=== PATIENT | male | born 1945 | race Caucasian/White ===

== ENCOUNTER 2016-06-25 08:43 | Day surgery (SDC) | payer MEDICARE ==
[~2016-06-25] VITALS: Ht 175.3 cm; Wt 83.6 kg
[2016-06-25] VITALS (7 sets, daily range): BP systolic 115–137; BP diastolic 73–85; PULSE 50–56; RESP 13–19; O2SAT 93–99
[~2016-06-25 08:43] MED LIST: Acetaminophen IV 1,000 MG in IV Premix 1 EACH IV ONE; Bupivacaine Liposome 1.3% 20 mL Inj INFILTRATE ONE; CeFAZolin 2 Gm/50 mL D5W IV Premix IV ONE; FLUO20CA25 PO; LIP40 PO; Lactated Ringer's 1,000 ML IV ONE; UBID1CAP52 PO
[2016-06-25] MEDS ORDERED: MetoCLOpramide 5 mg/mL 2 mL Inj ONE (08:44)
[2016-06-25] MEDS ORDERED: Propofol 10,000 mCg/mL 20 mL Inj ONE (08:44)
[2016-06-25] MEDS ORDERED: Ondansetron 2 mg/mL 2 mL Inj ONE (08:44)
[2016-06-25] MEDS ORDERED: CeFAZolin Inj 2 gm / 50mL D5W IV ONE (08:55)
--- NOTE | 2016-06-25 10:50 | PCM.HPANE ---
Patient Data Surgeon Admitting Provider: Attending Provider:Sanchez Gamble MD Primary Care Physician:Jaydon Cervantes MD Other Provider:[facility] [facility] Reason for Visit Bulbus Urethral Stricture Ht/WT & BMI Height (Feet): 5 Height (Inches): 9 Weight (Kilograms): 83.6 Body Mass Index 27.00 Allergies Coded Allergies: No Known Allergies (Verified Allergy, Unknown, 08/31/14) Past Anesthesia History Anesthesia History: Denies:: Abnormal Airway, Anesthesia Reactions, Difficult Intubation, Fam Anesthesia Reaction, Fam Malignant Hypertherm, Malignant Hyperthermia Diabetes History Hx Diabetes?: No MRSA MRSA: No Medications Blood Thinner: Aspirin Hypertension Medication: No Home Meds Incl Beta Karina: No Reported Medications Atorvastatin (Lipitor)40 Mg [id number] Mg PO DAILY Ref 0 06/20/16 Fluoxetine 20 Mg [id number] Mg PO DAILY Ref 0 06/20/16 Ubidecarenone/Vit E Acetate (Co Q-10 100 mg Softgel)1 Each Capsule1 Each PO DAILY 06/20/16 Discontinued Reported Medications Aspirin-Expunged Drug, Do Not Renew! (Lo-Dose Aspirin-Expunged Drug, Do Not Renew!)81 Mg Tablet.dr81 Mg PO 06/20/12 Ubidecarenone (Coq10)50 Mg Tab.acqj091 Mg PO 06/20/12 Lovastatin-Expunged Drug, Do Not Renew! 40 Mg Dhqzfm06 Mg PO 06/20/12 FLUoxetine-Expunged Drug, Do Not Renew! 20 Mg Jdrvaou19 Mg PO DAILY #30 CAP 06/20/12 History History of ENT Problems?: No HEENT History: Positive for:: Hearing Problem Denies:: Abnormal Airway Cataracts Difficult Intubation Glaucoma Denture Type: None Teeth Condition: Within Normal Limits Hx of Heart Problems?: No Cardiovascular History: Denies:: AICD Abdominal Aortic Aneurism Cardiac Surgery Chest Pain Edema Heart Murmur Hypertension Irregular Heartbeat Pacemaker Hx of Respiratory Problem?: No Respiratory History: Denies:: Asthma COPD Emphysema Oxygen Administration Use of C-PAP Machine Hx Neurologic Problems?: No Neurological History: Denies:: CVA Headaches Multiple Sclerosis Parkinson's Disease Seizures Hx of GI Problems?: No Hx of Problems?: Yes Genitourinary History: Denies:: Kidney Stones Urinary Tract Infection Other Pertinent History: urethral stricure - current admission problem Male Hx: Denies:: Prostate Problems Scrotal Mass Testicular Surgery Skin History: Denies:: History Skin Disorders? Pressure Ulcers Hx Musculoskeletal Problems?: Yes Musculoskeletal History: Positive for:: Musculoskeletal Trauma (prior hx ankle fx with fixation) Denies:: Back Injury Fibromyalgia Joint Replacement Myasthenia Gravis Osteoarthritis Rheumatoid Arthritis Hx of Psycho/Social Problems?: No Psycho Social History: Denies:: Anxiety Hx Depression Hx Surgeries?: Yes (rt ankle,appendectomy) Hx Any Other Health Problems?: Yes Other History: Denies:: Cancer Thyroid Disease History Blood Transfusions: Positive for:: Accept Blood Products? Denies:: Blood Transfusions Hx Diabetes: No Hx Alcohol Use: YesAlcoholic Drinks Per Day: one drink monthlyHx Substance Use : NoHave You Smoked inLast 12 mo: No Stop/Bang Treated for Sleep Apnea?: No Do You Have a CPAP Machine?: No S-Snoring: Do You Snore Loudly: Yes T-Tired: feel tired, fatigued: No O-Obsered: Observed not breath: No P-Blood Pressure: treated: No B- Body Mass Index > 35 kg/m2: No A- Age over 50: Yes N- Neck Large Circumference: No G- Gender Male: Yes GENE Total Score: 3 GENE Risk Assessment: Low Risk, <3 Yes Risk Assessment Category Category 1A: Patient has history of documented sleep apnea, and HAS NOT received any narcotic, sedative or anesthesia administration during this stay. Category 1B: Patient has history of documented sleep apnea, and HAS received any narcotic , sedative or anesthesia administration during this stay Category 2: Patient has SUSPECTED Obstructive Sleep Apnea, and HAS received any narcotic , sedative or anesthesia administration during this stay. Category 3: Patient has SUSPECTED Obstructive Sleep Apnea and HAS NOT received narcotic, sedative or anesthesia administration during this stay. Category 4: Outpatient in Procedural Areas with known sleep apnea or who screen positive for High Risk via the STOP/BANG questionnaire. Exam Exam Vital Signs Vital Signs Date Time Temp Pulse Resp B/P Pulse Ox O2 Delivery O2 Flow Rate FiO2 06/25/16 09:00 36.1 54 16 137/73 93 Room Air General Appearance: Oriented X3 HEENT/AIRWAY: MP 2 Lungs: Normal Air Movement Heart: Regular Rate/Rhythm Meds/Labs/Diagnostics Admission Meds Current Medications Lactated Ringer's (Lr) 1,000 ml @ 120 mls/hr Q8H20M ONCE IV Last administered on 06/25/16 08:53; Start 06/25/16 at 05:00; Stop 06/25/16 at 13:19 Acetaminophen (Tylenol IV) 1,000 mg STK-MED ONCE IV Last administered on 10:08; Start 06/25/16 at 08:55; Stop 06/25/16 at 08:57; Status DC Plan Impression Patient chart reviewed, patient interviewed and anesthestic plan with risks, benefits, and alternatives discussed, and informed consent obtained. ASA Physical Status: ASA2 Mod Systemic Disease Anesthetic Plan: GA Bene/Risks/Altern/Consents: Yes HP Complete Prior to Induction: Yes Rishi Arboleda MD Jun 25, 2016 10:50
[2016-06-25] MEDS ORDERED: Lactated Ringer's 1,000 ML IV SCH (11:21)
[2016-06-25] MEDS ORDERED: Lactated Ringer's 500 ML IV PRN (11:21)
[2016-06-25] MEDS ORDERED: fentaNYL-PF 50 mCg/mL 2 mL Inj IVPUSH PRN (11:25)
[2016-06-25] MEDS ORDERED: Dexamethasone 4 mg/mL Inj IVPUSH PRN (11:25)
[2016-06-25] MEDS ORDERED: HYDROmorphone 1 mg/mL Inj IVPUSH PRN (11:25)
[2016-06-25] MEDS ORDERED: MetoCLOpramide 5 mg/mL 2 mL Inj IVPUSH PRN (11:25)
[2016-06-25] MEDS ORDERED: Phenylephrine 10,000 mCg/mL Inj IVPUSH PRN (11:25)
[2016-06-25] MEDS ORDERED: EPHEDrine Sulfate 50 mg/mL Inj IVPUSH PRN (11:25)
[2016-06-25] MEDS ORDERED: Ondansetron 2 mg/mL 2 mL Inj IVPUSH PRN (11:25)
[2016-06-25] MEDS ORDERED: Hydrocortisone 2.5% 28 Gm Cream TOPICAL ONE (11:45)
--- NOTE | 2016-06-25 13:01 | PCM.ANEP1 ---
Post Anesthesia Phase 1 PACU Phase 1 Assessment Vital Signs Vital Signs Date Time Temp Pulse Resp B/P Pulse Ox O2 Delivery O2 Flow Rate FiO2 06/25/16 12:18 36.3 53 16 131/81 98 Room Air 06/25/16 12:15 54 15 119/81 99 Room Air 06/25/16 12:10 55 19 134/83 98 Room Air 06/25/16 12:05 36.2 55 13 130/85 96 Room Air 06/25/16 12:00 56 16 115/73 96 Room Air 06/25/16 11:57 36.2 50 16 134/84 96 Room Air 06/25/16 09:00 36.1 54 16 137/73 93 Room Air Anesthetic Administered: GA Level of Alertness: Awake, talking Pain: No Nausea or Vomiting: No Oxygen Delivery: Room Air Lungs: Normal Air Movement Rishi Arboleda MD Jun 25, 2016 13:01
--- NOTE | 2016-06-25 22:28 | OP ---
[address] [address] OPERATIVE REPORT PATIENT: JUDI MOSS : 1945 MR#: [id number] ADMIT: 06/25/2016 JOB ID: [id number] DATE OF SURGERY: PREOPERATIVE DIAGNOSIS(ES): 1. Gross hematuria. 2. Multiple bulbar urethra strictures. POSTOPERATIVE DIAGNOSIS(ES): 1. Gross hematuria. 2. Multiple bulbar urethra strictures. OPERATION PERFORMED: 1. Cystoscopy. 2. Visual urethrotomy. SURGEON: Sanchez Gamble MD. ANESTHESIOLOGIST: Rishi Arboleda MD. ANESTHESIA: General. FINDINGS: There were three bulbar urethral strictures in succession. The distal two required shallow incision at 12 o'clock with the cold knife to get adequate enlargement of the urethral lumen. External sphincter intact. Prostate: 4.5 cm length with elevated median bar and prominent mucosal vascularity. Bladder 2+ trabeculation. Normal orifices bilaterally with documented clear efflux of urine. No stone, tumor, foreign body were visualized. PROCEDURE SUMMARY: Patient was positioned supine and was administered general anesthesia. He was then repositioned in semi-lithotomy and the lower abdomen, genitalia and groin were prepped and draped in sterile fashion. The 21-Anguillan urethrotome was advanced to lower urinary tract with the findings as described above. The two distal most strictures were incised at 12 o'clock and just at level of vascularized tissue more proximal was widely patent. The scope was then advanced proximally with the findings as described above. The bladder was then left partially filled. All instrumentation was removed. The urethra was filled with 20 cc of 2.5% hydrocortisone cream and an 18-Anguillan Nails silicone catheter was inserted and placed to gravity drainage. The balloon was inflated and the patient was then repositioned supine, awakened, transferred to the [facility], and transferred to recovery in stable condition.
== END 2016-06-25 23:59 | disposition home or self-care (01) ==
LOC: SAS 08:43
PROVIDERS: ATTEND Specialist
DX: N35.9 Urethral stricture, unspecified (principal); R31.0 Gross hematuria; N40.0 Benign prostatic hyperplasia without lower urinary tract symptoms
CPT/HCPCS: 52276; J0131; J0690; J2405; J2765; J7120